=== PATIENT | male | born 1985 | race Caucasian/White ===

== ENCOUNTER 2020-06-05 16:35 | Emergency (ER) | payer OTHER ==
[~2020-06-05] VITALS: Ht 195.6 cm; Wt 127.0 kg
[2020-06-05] MEDS ORDERED: MELOXICAM7.5 MG PO (16:48)
[2020-06-05] MEDS ORDERED: TYLENOL EXTRA500 MG PO (16:49)
[2020-06-05] MEDS ORDERED: OMEPRAZOLE 20 M20 M1 PO (16:49)
[2020-06-05] MEDS ORDERED: ZANAFLEX4 M1 PO (16:49)
[2020-06-05 17:21] LABS: ABSOLUTE BASOPHILS 0.1 thou/uL (0.0-0.2); ABSOLUTE EOSINOPHILS 0.2 thou/uL (0.0-0.7); ABSOLUTE LYMPHOCYTES 2.6 thou/uL (0.8-5.3); ABSOLUTE MONOCYTES 0.7 thou/uL (0.0-1.2); ABSOLUTE NEUTROPHILS 6.6 thou/uL (1.6-8.1); BASOPHILS 0.9 %; EOSINOPHILS 1.6 %; HEMATOCRIT 45.6 % (42.0-52.0); HEMOGLOBIN 15.3 gm/dL (14.0-18.0); LYMPHOCYTES 25.9 %; MCH 29.7 pg (26.0-34.0); MCHC 33.6 g/dL (28.0-37.0); MCV 88.6 fL (80.0-100.0); MONOCYTES 6.7 %; MPV 8.1 fl. (7.2-11.1); NUCLEATED RBCS 0 /100WBC; PLATELET COUNT* 290 thou/uL (150-400); POLYS 64.9 %; RBC 5.15 mil/uL (4.50-6.00); RDW-CV 13.9 % (10.5-14.5); WBC 10.2 thou/uL (4.0-11.0)
[2020-06-05 17:31] LABS: CALCIUM 9.8 mg/dL (8.5-10.1); POTASSIUM 3.7 mmol/L (3.5-5.1)
[2020-06-05 17:42] LABS: ALBUMIN 4.5 g/dL (3.4-5.0); TOTAL BILIRUBIN 0.9 mg/dL (<0.1-1.0); TOTAL PROTEIN 7.8 g/dL (6.4-8.2)
[2020-06-05 21:09] VITALS: BP 124/70
--- NOTE | 2020-06-06 13:12 | EKG ---
[place] [address] ELECTROCARDIOGRAM REPORT Name: MAXIM RUBIO Room: [facility]#: [id number] Admission: 06/05/20 Attend Phys: Discharge: 06/05/20 Date of : 89 Date of Service: 06/05/20 1643 Report #: [id number] THIS REPORT FOR: //name// [facility] ED Test Date: 2020-06-05 Test Time: 16:43:03 Pat Name: MAXIM RUBIO Department: Room: Gender: [employer]: EVETTE : 1985 Requested By: Vince Hamilton Order Number: [id number] MD: Akbar Mcclain Measurements Intervals [place] Rate: 89 P: 46 DE: 137 QRS: 42 QRSD: 102 T: 36 QT: 342 QTc: 417 Interpretive Statements Sinus rhythm No previous ECG available for comparison Electronically Signed On 06-06-2020 13:12:05 DIP FILLER by Akbar Mcclain [email or web address] <ELECTRONICALLY SIGNED> By: Akbar Mcclain MD, [facility] 06/06/20 1312 42 42 Akbar Mcclain MD, FACC /EPI
== END 2020-06-05 21:10 | disposition home or self-care (01) ==
LOC: M.ERS 16:35
PROVIDERS: Emergency Medicine Emergency Medical Services
DX: R00.2 Palpitations (principal); Z79.899 Other long term (current) drug therapy; Z88.0 Allergy status to penicillin